=== PATIENT | female | born 1980 | race Caucasian/White ===

== ENCOUNTER 2016-07-09 09:49 | Day surgery (SDC) | payer BC ==
[2016-07-05 09:08] VITALS: BMI 40.0
--- NOTE | 2016-07-05 09:29 | PAT Medication Instructions ---
Service Date July 05, 2016. Current Home Medication List Acetaminophen (Tylenol), 1,500 MG PO PRN Bupropion (Wellbutrin-Xl), 300 MG PO HS Insulin Human Lispro (Insulin Humalog Pump ), 1 EA N/A UD Lamotrigine (Lamictal), 100 MG PO HS Metoprolol Succ (Toprol Xl) (Toprol-Xl), 25 MG PO HS Venlafaxine Hcl (Venlafaxine Hcl Er), 1 TAB PO HS Medication Instructions For Your Scheduled Surgery Insulin Human Lispro (Insulin Humalog Pump ), 1 EA N/A UD (set insulin pump at basal rate at midnight prior to surgery- do not bolus after midnight) - Take the following medications the morning of surgery with a sip of water: Acetaminophen (Tylenol), 1,500 MG PO PRN (if needed) - Take the following medications as scheduled the night before surgery: Lamotrigine (Lamictal), 100 MG PO HS Metoprolol Succ (Toprol Xl) (Toprol-Xl), 25 MG PO HS Venlafaxine Hcl (Venlafaxine Hcl Er), 1 TAB PO HS Bupropion (Wellbutrin-Xl), 300 MG PO HS Acetaminophen (Tylenol), 1,500 MG PO PRN If you have any questions please call us at [phone] or [phone] ( [place]) or [phone]
[2016-07-05 10:22] LABS: BASO % 0.7 %; BASO ABS # 0.04 K/uL (0-0.2); COMPLETE YES; EOS % 5.4 %; HEMATOCRIT 39.6 % (37-47); IG% 0.2 %; LYMPH % 25.8 %; LYMPH ABS # 1.44 K/uL (1.2-3.4); MEAN CELL VOLUME 85.2 fL (80-100); MEAN CORPUSCULAR HGB CONC 32.8 g/dl (32-36); MEAN PLATELET VOLUME 9.8 fL (7.4-10.4); MONO % 8.8 %; NEUT % 59.1 %; PLATELET COUNT 286 K/uL (130-400); RED BLOOD COUNT 4.65 M/uL (4.2-5.4); WHITE BLOOD COUNT 5.59 K/uL (4.8-10.8)
[2016-07-05 10:29] LABS: BUN/CREATININE RATIO 13.7 (10-20); CALCIUM 8.5 mg/dl (8.5-10.1); CREATININE 0.76 mg/dl (0.60-1.20); POTASSIUM 4.2 mmol/L (3.5-5.1)
[2016-07-05 10:37] LABS: ALB/GLOB RATIO 0.9 (0.9-2)
[~2016-07-09] VITALS: Ht 182.9 cm; Wt 135.5 kg
[~2016-07-09 09:49] MED LIST: ACET-1256 PO; BUPRTAB51 PO; INSPMPHMLG; LACTATED RINGER'S 1000ML 1,000 ML IV SCH; LAMO100T16 PO; METO25TA3 PO; SCOPOLAMINE 1.5 MG TDSY TD SCH; VENL150T33 PO
[2016-07-09 10:17] VITALS: BP 117/87; PULSE 88; TEMP 37.3; O2SAT 97; Ht 182.9 cm; Wt 135.5 kg
--- NOTE | 2016-07-09 10:24 | Discharge Instructions ---
Discharge Instructions Date of Service July 09, 2016. Admission Reason for Admission: Acute Recurrent Steptoccal Tonsillitis, Cryptic To Discharge Discharge Diagnosis / Problem: Acute Recurrent Streptococcal Tonsilltis, Cryptic Tonsils Discharge Goals Goal(s): Therapeutic intervention Activity Recommendations Activity Limitations: as noted below (No strenuous activity for 3 weeks. No lifting more than 5 lbs during this time. ) Driving or Machine Use: No drinving while taking narcotic pain medicaiton . Instructions / Follow-Up Instructions / Follow-Up If you notice bleeding, begin gargling with cold ice water with a pinch of salt for 5 mins. If the bleeding persists after 5 mins call the [facility] ENT office during normal office hours or after hours go straight to [facility]. Current Hospital Diet Patient's current hospital diet: Discharge Diet Recommended Diet: Regular Diet (Soft foods. No red colored foods. If unable to tolerate foods continue to drink plenty of fluids. ) Pending Studies Studies pending at discharge: no Medical Emergencies . Who to Call and When: Medical Emergencies: If at any time you feel your situation is an emergency, please call 911 immediately. . Non-Emergent Contact Non-Emergency issues call your: Primary Care Provider . . "Provider Documentation" section prepared by Amalia So. . VTE Core Measure Inpt VTE Proph given/why not?: SCD's
[2016-07-09] MEDS ORDERED: ACETAMINOPHEN/HYDROCODONE ELIX 15 ML/CUP UDP PO PRN (10:30)
[2016-07-09] MEDS ORDERED: ONDANSETRON INJ 2 MG/ML 2 ML VIAL IV PRN (10:30)
[2016-07-09] MEDS ORDERED: SCOPOLAMINE 1.5 MG TDSY TD ONE (10:36)
--- NOTE | 2016-07-09 11:37 | History & Physical Bridge Note ---
H&P Re-Evaluation Bridge Note: I have examined the patient, reviewed the History & Physical and in the interval since the performance of the History & Physical I have noted the following changes of clinical significance: No changes noted
[2016-07-09] MEDS ORDERED: LIDOCAINE/EPINEPHRINE 1% 20 ML VIAL ONE (13:16)
[2016-07-09] MEDS ORDERED: OXYMETAZOLINE HCL 0.05% NA SPR 15 ML BTL ONE ×2 (13:17→13:34)
[2016-07-09] MEDS ORDERED: FENTANYL CITRATE INJ 50 MCG/1 ML 2 ML VIAL ONE (13:23)
[2016-07-09] MEDS ORDERED: MIDAZOLAM HCL 1 MG/ML 2ML VIAL ONE (13:23)
[2016-07-09] MEDS ORDERED: DEXAMETHASONE SOD INJ 4 MG/ML VIAL ONE (14:20)
[2016-07-09] MEDS ORDERED: PROPOFOL IV EMULSION 10 MG/ML 20 ML VIAL IV ONE (14:20)
[2016-07-09] MEDS ORDERED: GLYCOPYRROLATE INJ 0.2 MG/ML VIAL ONE (14:20)
[2016-07-09] MEDS ORDERED: LIDOCAINE HCL 2% 2 ML VIAL (20MG/ML) ONE (14:20)
[2016-07-09] MEDS ORDERED: ROCURONIUM BROMIDE 10 MG/ML 5 ML VIAL ONE (14:20)
[2016-07-09] MEDS ORDERED: LARYING-O-JET KIT (LTA) EXT ONE ×2 (14:21)
--- NOTE | 2016-07-09 14:37 | OPERATIVE REPORT ---
DATE OF OPERATION: 07/09/2016 PREOPERATIVE DIAGNOSIS: Recurrent acute tonsillitis. POSTOPERATIVE DIAGNOSIS: Recurrent acute tonsillitis. OPERATION PERFORMED: Tonsillectomy. SURGEON: Dr. Ro. ANESTHESIA: General via endotracheal tube. BLOOD LOSS: 25 mL. IV FLUIDS: 1200 mL crystalloid. INDICATIONS FOR THE PROCEDURE: This is a 36-year-old woman with recurrent acute tonsillitis meeting criteria for tonsillectomy. A full informed consent including the indications, risks, benefits, and alternatives was provided in a relaxed office setting. There was an opportunity for questions and answers. SPECIMENS SENT: Tonsils bilaterally. SPONGE AND NEEDLE COUNT: Correct at the end of the case. OPERATION AND FINDINGS: Enlarged and scared tonsils. DESCRIPTION OF THE PROCEDURE: The patient had an uneventful endotracheal intubation and after this the table was turned 90 degrees away from the studio musician. Head was lowered in the Isa position as the Kanika-Edil mouth gag was inserted and suspended using towels. Peritonsillar area was injected with 8 mL of 1% lidocaine 1:100,000 parts epinephrine. Head drape was positioned. The tonsils were grasped with a straight Allis and a plane was defined between the superior constrictor muscles of the pharynx and the tonsillar capsules using the Arthrocare coblation tonsillectomy wand on a setting of 5 for coblation and 4 for coagulation. Tonsils were removed in their entirety. Then, the tonsillar fossae were packed with tonsillar sponges soaked in Afrin. These were left in place for a few minutes as I suctioned out the stomach using a 18-Colombian nasogastric tube coated in K-Y jelly and passed through the mouth down to the stomach. After suctioning the stomach, the tonsillar sponges were removed from each tonsillar fossa, any further oozing was stopped with suction electrocautery. Copious irrigation of the oropharynx using a bulb syringe and saline and this was suctioned away with the Yankauer suction. There was no further bleeding seen. I placed an oral airway under direct visualization for the studio musician after removing the Kanika-Edil mouth gag. Head was returned to the neutral position. The table was turned 90 degrees back towards the anesthesiologist for extubation. The patient was extubated and transported to recovery in no apparent distress. I attest to the content of the Intraoperative Record and any orders documented therein. Any exceptions are noted below. MTDD
--- NOTE | 2016-07-09 14:39 | Anesthesiology Progress Note ---
Anesthesia Post Op Note Date & Time July 09, 2016 at 14:39 Vital Signs Pain Intensity: 4 Vital Signs Past 12 Hours Date Time Temp Pulse Resp B/P Pulse Ox O2 Delivery O2 Flow Rate FiO2 07/09/16 14:30 78 19 102/75 96 Room Air 07/09/16 14:20 77 12 105/79 100 Mask 10 07/09/16 14:10 36.5 104 16 162/93 100 Mask 10 07/09/16 10:17 37.3 88 16 117/87 97 Room Air Notes Mental Status: alert / awake / arousable, participated in evaluation Pt Amnestic to Procedure: Yes Nausea / Vomiting: adequately controlled Pain: adequately controlled Airway Patency, RR, SpO2: stable & adequate BP & HR: stable & adequate Hydration State: stable & adequate Anesthetic Complications: no major complications apparent
[2016-07-09] MEDS ORDERED: EpHEDrine SULFATE INJ 50 MG/ML AMP IV PRN (14:45)
[2016-07-09] MEDS ORDERED: ATROPINE SULFATE 0.1 MG/ML 5ML SYR IV PRN (14:45)
[2016-07-09] MEDS ORDERED: ONDANSETRON INJ 2 MG/ML 2 ML VIAL ONE (15:08)
[2016-07-09 15:10] VITALS: BP 103/84; PULSE 76; TEMP 36.4; O2SAT 95
[2016-07-09 15:35] VITALS: BP 124/75; PULSE 78; TEMP 36.5; O2SAT 95
[2016-07-09] MEDS ORDERED: ACETAMINOPHEN/HYDROCODONE ELIX 15 ML/CUP UDP ONE (15:37)
[2016-07-09] MEDS ORDERED: CHECK SCOPOLAMINE PATCH PLACEMENT SCH (16:00)
[2016-07-09 16:05] VITALS: BP 127/75; PULSE 82; TEMP 36.5; O2SAT 96
== END 2016-07-09 16:15 | disposition home or self-care (01) ==
LOC: C.ACU 09:49
PROVIDERS: ATTEND Otolaryngology
DX: J03.91 Acute recurrent tonsillitis, unspecified (principal); E10.9 Type 1 diabetes mellitus without complications; Z79.4 Long term (current) use of insulin